=== PATIENT | female | born 1950 | race African-American/Black ===

== ENCOUNTER 2017-07-03 01:55 | Emergency (ER) | payer OTHER ==
[~2017-07-03] VITALS: Ht 157.5 cm; Wt 83.0 kg
[2017-07-03 02:07] VITALS: BP 161/67; PULSE 83; RESP 18; O2SAT 84
[2017-07-03] MEDS ORDERED: SODIUM CHLORIDE 0.9% FLUSH 10 ML FLUSH IV FLUSH PRN (02:30)
[2017-07-03] MEDS ORDERED: ONDANSETRON HCL 4 MG/2 ML VIAL IVP ONE (02:30)
[2017-07-03] MEDS ORDERED: MORPHINE SULFATE 4 MG/ML INJ IV PUSH ONE (02:30)
[2017-07-03 02:45] VITALS: BP 137/70; PULSE 75; RESP 18; O2SAT 95
[2017-07-03 03:29] LABS: AUTOMATED NEUTROPHIL # 10.5 TH/MM3 (1.8-7.7); BASOPHIL # 0.1 TH/MM3 (0-0.2); BASOPHIL % 0.5 % (0.0-2.0); EOSINOPHIL # 0.1 TH/MM3 (0-0.4); EOSINOPHIL % 0.7 % (0.0-4.0); HEMATOCRIT 36.6 % (35.0-46.0); HEMO FLAGS DIFF FINAL; LYMPHOCYTE # 1.9 TH/MM3 (1.0-4.8); MEAN CELL VOLUME 76.1 FL (80.0-100.0); MEAN CORPUSCULAR HEMOGLOBIN 23.5 PG (27.0-34.0); MEAN CORPUSCULAR HGB CONC 30.8 % (32.0-36.0); MONO % 8.6 % (0.0-8.0); NEUT % 76.2 % (16.0-70.0); PLATELET COUNT 275 TH/MM3 (150-450); RED BLOOD COUNT 4.81 MIL/MM3 (4.00-5.30); RED CELL DISTRIBUTION WIDTH 21.9 % (11.6-17.2); WHITE BLOOD COUNT 13.7 TH/MM3 (4.0-11.0)
[2017-07-03 03:49] LABS: ALKALINE PHOSPHATASE 92 U/L (45-117); ALT (GPT) 19 U/L (10-53); ANION GAP 7 MEQ/L (5-15); AST (GOT) 18 U/L (15-37); BICARBONATE 26.8 MEQ/L (21.0-32.0); BLOOD UREA NITROGEN 8 MG/DL (7-18); CHLORIDE 111 MEQ/L (98-107); CREATINE KINASE 162 U/L (26-192); GLOMERULAR FILTRATION RATE 77 ML/MIN (>89); SODIUM (NA) 145 MEQ/L (136-145); TOTAL BILIRUBIN ADULT 0.2 MG/DL (0.2-1.0)
[2017-07-03 03:56] LABS: APTT (PATIENT) 22.2 SEC (24.3-30.1)
[2017-07-03 04:08] LABS: CKMB 1.3 NG/ML (0.5-3.6)
[2017-07-03] MEDS ORDERED: DEXTROSE 50% IN WATER 50 ML VIAL(D50) IV PUSH ONE (04:15)
--- NOTE | 2017-07-03 04:32 | PD ---
HPI Chief Complaint: Abdominal Pain Time Seen by Provider: 02:21 Travel History International Travel<30 days: No Contact w/Intl Traveler<30days: No Traveled to known affect area: No History of Present Illness HPI 67-year-old female with history of insulin-dependent diabetes here for evaluation of right-sided abdominal pain which radiates to her right upper abdomen, her right shoulder, and back. Symptoms started at around 2 PM yesterday and have been constant. She describes the pain as sharp/pressure-like , constant, worse with movements, moderate to severe. She denies any known history of cardiac disease. No history of abdominal surgeries. No nausea or vomiting. No diarrhea. No urinary symptoms. No paresthesias or motor deficits. PFSH Past Medical History Diabetes: Yes Patient Takes Glucophage: Yes Hypertension: Yes Tubal Ligation: Yes Past Surgical History Other Surgery: Yes (RLE PARTIAL AMPUTATION) Social History Alcohol Use: No Tobacco Use: Yes (10 CIGARETTES/DAY) Substance Use: No Allergies-Medications (Allergen,Severity, Reaction): Coded Allergies: No Known Allergies (Unverified , 07/03/17) Review of Systems Except as stated in HPI: all other systems reviewed are Neg Physical Exam Narrative GENERAL: Well-developed, well-nourished, no apparent distress SKIN: Focused skin assessment warm/dry. HEAD: Atraumatic. Normocephalic. EYES: Pupils equal and round. No scleral icterus. No injection or drainage. ENT: Mucous membranes pink and moist. NECK: Trachea midline. No JVD. CARDIOVASCULAR: Regular rate and rhythm. RESPIRATORY: No accessory muscle use. Clear to auscultation. Breath sounds equal bilaterally. GASTROINTESTINAL: Abdomen soft, nondistended. Mild right mid and right upper quadrant tenderness without peritoneal signs. Normal bowel sounds. MUSCULOSKELETAL: Right BKA. No obvious deformities. No clubbing. No cyanosis. No edema. NEUROLOGICAL: Awake and alert. No obvious cranial nerve deficits. Motor grossly within normal limits. Normal speech. PSYCHIATRIC: Appropriate mood and affect; insight and judgment normal. Data Data Last Documented VS Vital Signs Date Time Temp Pulse Resp B/P (MAP) Pulse Ox O2 Delivery O2 Flow Rate FiO2 07/03/17 05:25 100 Room Air 07/03/17 05:00 87 18 4.00 Orders Orders Cta Thor Abd Aorta W Iv C W3d (07/03/17 ) Complete Blood Count With Diff (07/03/17 02:26) Comprehensive Metabolic Panel (07/03/17 02:26) Lipase (07/03/17 02:26) Prothrombin Time / Inr (Pt) (07/03/17 02:26) Act Partial Throm Time (Ptt) (07/03/17 02:26) Urinalysis - C+S If Indicated (07/03/17 02:26) Iv Access Insert/Monitor (07/03/17 02:26) Ecg Monitoring (07/03/17 02:26) Oximetry (07/03/17 02:26) Morphine Inj (Morphine Inj) (07/03/17 02:30) Ondansetron Inj (Zofran Inj) (07/03/17 02:30) Sodium Chloride 0.9% Flush (Ns Flush) (07/03/17 02:30) Electrocardiogram (07/03/17 02:26) Wet Prep Profile (07/03/17 02:26) Ckmb (Isoenzyme) Profile (07/03/17 02:26) Troponin I (07/03/17 02:26) CKMB (07/03/17 02:49) CKMB% (07/03/17 02:49) Dextrose 50% In Ronald (Vial) Inj (D50w (Vi (07/03/17 04:15) Iohexol 350 Inj (Omnipaque 350 Inj) (07/03/17 04:40) Cath For Specimen (07/03/17 04:51) Labs Laboratory Tests Test 07/03/17 02:49 07/03/17 05:00 White Blood Count 13.7 TH/MM3 Red Blood Count 4.81 MIL/MM3 Hemoglobin 11.3 GM/DL Hematocrit 36.6 % Mean Corpuscular Volume 76.1 FL Mean Corpuscular Hemoglobin 23.5 PG Mean Corpuscular Hemoglobin Concent 30.8 % Red Cell Distribution Width 21.9 % Platelet Count 275 TH/MM3 Mean Platelet Volume 9.1 FL Neutrophils (%) (Auto) 76.2 % Lymphocytes (%) (Auto) 14.0 % Monocytes (%) (Auto) 8.6 % Eosinophils (%) (Auto) 0.7 % Basophils (%) (Auto) 0.5 % Neutrophils # (Auto) 10.5 TH/MM3 Lymphocytes # (Auto) 1.9 TH/MM3 Monocytes # (Auto) 1.2 TH/MM3 Eosinophils # (Auto) 0.1 TH/MM3 Basophils # (Auto) 0.1 TH/MM3 CBC Comment DIFF FINAL Differential Comment Prothrombin Time 10.0 SEC Prothromb Time International Ratio 1.0 RATIO Activated Partial Thromboplast Time 22.2 SEC Blood Urea Nitrogen 8 MG/DL Creatinine 0.89 MG/DL Random Glucose 45 MG/DL Total Protein 7.3 GM/DL Albumin 3.0 GM/DL Calcium Level 8.6 MG/DL Alkaline Phosphatase 92 U/L Aspartate Amino Transf (AST/SGOT) 18 U/L Alanine Aminotransferase (ALT/SGPT) 19 U/L Total Bilirubin 0.2 MG/DL Sodium Level 145 MEQ/L Potassium Level 4.0 MEQ/L Chloride Level 111 MEQ/L Carbon Dioxide Level 26.8 MEQ/L Anion Gap 7 MEQ/L Estimat Glomerular Filtration Rate 77 ML/MIN Total Creatine Kinase 162 U/L Creatine Kinase MB 1.3 NG/ML Troponin I LESS THAN 0.02 NG/ML Lipase 118 U/L Urine Color YELLOW Urine Turbidity CLEAR Urine pH 6.0 Urine Specific [place] GREATER THAN 1.050 Urine Protein TRACE mg/dL Urine Glucose (UA) 70 mg/dL Urine Ketones NEG mg/dL Urine Occult Blood NEG Urine Nitrite NEG Urine Bilirubin NEG Urine Urobilinogen LESS THAN 2.0 MG/DL Urine Leukocyte Esterase NEG Urine RBC LESS THAN 1 /hpf Urine WBC 1 /hpf Urine Mucus FEW /lpf Microscopic Urinalysis Comment CULT NOT INDICATED Clue Cells (Wet Prep) NONE SEEN Vaginal Trichomonas (Wet Prep) NONE SEEN Vaginal Yeast (Wet Prep) NONE SEEN MDM Medical Decision Making Medical Screen Exam Complete: Yes Emergency Medical Condition: Yes Differential Diagnosis Hepatobiliary disease, pancreatitis, dissection, AAA, ACS, pneumothorax, PE, nephrolithiasis, ureterolithiasis, pyelonephritis, Narrative Course Vital signs show heart rate 87, blood pressure 131/59, pulse ox 100% on room air. CBC: WBC 13.7, hemoglobin 11.3, hematocrit 36.6, platelets 275. CMP is remarkable for random glucose 45. Cardiac enzymes are negative. Lipase is 118. UA is not suggestive of UTI. Wet prep is negative for yeast, negative for clue cells, negative for Trichomonas. CT thoracic and abdominal aorta: CONCLUSION: 1. Atherosclerotic change in aorta with no focal aneurysm or dissection. 2. Cardiomegaly. 3. Underlying emphysema. 4. Mild consolidation in the right posterior lung base. 5. 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 Approximate 50% diameter stenoses in both common iliac arteries. Patient was given an amp of D50 for her hypoglycemia. Repeat fingerstick was 128, then 86. She was made aware of all findings, and on reassessment she is sleeping comfortably. She has been having a cough recently. I offered to admit her to the hospital for further treatment and evaluation of pneumonia, however she prefers to be discharged home to follow up with her primary care physician this week. I will start her on Levaquin. She was informed on when to return to the emergency department patient verbalizes understanding and agreement with plan. Diagnosis Primary Impression: Pneumonia Qualified Codes: J18.1 - Lobar pneumonia, unspecified organism Additional Impression: Hypoglycemia Referrals: Primary Care Physician 3 days Additional Instructions: Follow-up with your primary care physician this week. Take antibiotics as prescribed. Return to the emergency department for worsening symptoms or any other concerns. Scripts Levofloxacin (Levaquin) 500 Mg Tablet 500 MG PO DAILY for Infection for 7 Days, #7 TAB 0 Refills Prov: Tony Cardona MD 07/03/17 Disposition: 01 DISCHARGE HOME Condition: Stable Tony Cardona MD Jul 03, 2017 04:32
[2017-07-03] MEDS ORDERED: IOHEXOL 350 MG/ML 10 ML VIAL (for RAD DIAG) IVCONTRAST ONE (04:40)
[2017-07-03 05:00] VITALS: BP 131/59; PULSE 87; RESP 18; O2SAT 96
[2017-07-03 05:09] LABS: BLOOD, URINE NEG (NEG); COMMENT (UR) CULT NOT INDICATED; CULTURE IF INDICATED CULT NOT INDICATED; GLUCOSE,URINE 70 mg/dL (NEG); KETONE, URINE NEG (NEG); MUCUS URINE FEW /lpf (OCC); NITRITE,URINE NEG (NEG); URINE COLOR YELLOW (YELLW/STRAW)
--- NOTE | 2017-07-03 05:18 | RADRPT ---
EXAM DATE/TIME: 07/03/2017 04:19 [facility] COMPARISON: No previous studies available for comparison. INDICATIONS : Back pain. IV CONTRAST: 100 cc Omnipaque 350 (iohexol) IV RADIATION DOSE: 16.87 CTDIvol (mGy) MEDICAL HISTORY : Hypertension. SURGICAL HISTORY : Tubal ligation. ENCOUNTER: Initial ACUITY: 1 day PAIN SCALE: 5/10 LOCATION: Bilateral back TECHNIQUE: Volumetric scanning was performed using a multi-row detector CT scanner. The data was post processed with a variety of visualization algorithms including full volume maximum intensity projection, multi -planar sliding thin slab reformation, curved planar reformation, and surface rendering techniques. Using automated exposure control and adjustment of the mA and/or kV according to patient size, radiat ion dose was kept as low as reasonably achievable to obtain optimal diagnostic quality images. DICOM format image data is available electronically for review and comparison. FINDINGS: LUNGS: There is no pneumothorax. No concerning pulmonary nodule is visualized. No pleural fluid is present . There is underlying emphysema. There is mild consolidation in the posterior right history MEDIASTINUM: No abnormally enlarged lymph nodes by CT criteria. No axillary or hilar abnormalities are identified. There is a small hiatal hernia. ABDOMEN: The liver and spleen are free of focal defects. The gallbladder and pancreas demonstrate no abnormali ty. The adrenal glands are normal. The kidneys demonstrate no evidence of solid renal mass or hydrone phrosis. No free fluid or abdominal masses are identified. No para-aortic adenopathy is seen. PELVIS: No evidence of free fluid or pelvic mass. No abnormally enlarged inguinal or retroperitoneal lymph no monique are present. The bladder is unremarkable. THORACIC AORTA: There is a bovine branching pattern off the thoracic aorta. There is no evidence of aneurysm or disse ction. ABDOMINAL AORTA: The aorta demonstrates calcification and no dilatation without aneurysm or dissection. The renal art eries are patent bilaterally. The proximal celiac and superior mesenteric arteries are patent and no rmal in diameter. PELVIC VESSELS: The internal iliac and external iliac vessels demonstrate diffuse atherosclerotic calcification. Ther e is no focal aneurysm. There is an approximate 50% diameter stenosis in the proximal left common rodney ac artery extending for roughly 2 cm. There is a smaller approximate 50% stenosis in the proximal rig ht common iliac artery as well. There is a high-grade stenosis in the right common femoral artery. CONCLUSION: 1. Atherosclerotic change in aorta with no focal aneurysm or dissection. 2. Cardiomegaly. 3. Underlying emphysema. 4. Mild consolidation in the right posterior lung base. 5. 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 Approximate 50% diameter stenoses in both common iliac arteries. Quinn Apple MD on July 03, 2017 at 5:08 Board Certified Radiologist. This report was verified electronically.
[2017-07-03 05:25] VITALS: O2SAT 100
[2017-07-03] MEDS ORDERED: LEVOFLOXACIN 500 MG TAB PO ONE (05:30)
[2017-07-03] MEDS ORDERED: LEVA500T33 PO (05:30)
--- NOTE | 2017-07-03 14:44 | EKG ---
Date Performed: 07/03/2017 Time Performed: 03:14:49 PTAGE: 67 years EKG: Sinus rhythm MARKED RIGHT AXIS DEVIATION NONSPECIFIC T-WAVE ABNORMALITY ABNORMAL ECG NO PREVIOUS TRACING DOCTOR: Angelique Caraballo Interpretating Date/Time 07/03/2017 14:40:18
== END 2017-07-03 06:51 | disposition home or self-care (01) ==
LOC: NEPE 01:55
DX: J18.9 Pneumonia, unspecified organism (principal); E11.649 Type 2 diabetes mellitus with hypoglycemia without coma; M54.9 Dorsalgia, unspecified; I51.7 Cardiomegaly; J43.9 Emphysema, unspecified; I77.1 Stricture of artery; I10 Essential (primary) hypertension; F17.210 Nicotine dependence, cigarettes, uncomplicated; R94.31 Abnormal electrocardiogram [ECG] [EKG]
CPT/HCPCS: 71275; 74174; 80053; 81001; 82550; 82552; 83690; 84484; 85025; 85610; 85730; 87210; 93005; 96374; 96375; 99285; J2270; J2405; Q9967